=== PATIENT | female | born 1945 | race Caucasian/White ===

== ENCOUNTER 2018-06-17 05:53 | Day surgery (SDC) | payer MEDICARE ==
[~2018-06-17] VITALS: Ht 161.3 cm; Wt 118.3 kg
[~2018-06-17 05:53] MED LIST: ADV250 IH; AMLO5TAB9 PO; ASPIRIN PO; LEVO100T12 PO; LEVO100T6 PO; MULT-248 PO; MULTIVITAMIN PO; OSTEOBIFLEX PO; SIMV40TA59 PO; VENL150C2 PO; VENL225T3 PO; VITAMIN B12 PO
[2018-06-17] MEDS ORDERED: SODIUM CHLORIDE 0.9% 1000ML 1,000 ML IV ONE (05:59)
[2018-06-17 06:09] VITALS: BP 161/71
[2018-06-17] MEDS ORDERED: PROPOFOL 1000 MG/100 ML 100 ML IV ONE (06:29)
[2018-06-17] MEDS ORDERED: LIDOCAINE HCL 1% 20 ML VIAL ONE (06:30)
[2018-06-17] MEDS ORDERED: GLYCOPYRROLATE 0.2 MG/ML 5 ML VIAL ONE (06:31)
[2018-06-17 06:32] LABS: INR 1.17 (0.85-1.15); PROTHROMBIN TIME 12.2 SEC (9.6-11.6)
[2018-06-17] MEDS ORDERED: LINA145C PO (06:50)
[2018-06-17] MEDS ORDERED: SIMV20TA6 PO (06:50)
[2018-06-17] MEDS ORDERED: FURO20TA4 PO (06:50)
[2018-06-17] MEDS ORDERED: WHEA1POW2 PO (06:50)
[2018-06-17] MEDS ORDERED: DILT120T PO (06:50)
[2018-06-17] MEDS ORDERED: CALC-1009 PO (06:50)
[2018-06-17] MEDS ORDERED: IRBE300T19 PO (06:50)
[2018-06-17] MEDS ORDERED: ARIP5TAB19 PO (06:50)
[2018-06-17] MEDS ORDERED: DULO60CA63 PO (06:50)
[2018-06-17] MEDS ORDERED: ALBUTEROL (06:50)
[2018-06-17] MEDS ORDERED: WARF-57 PO (06:50)
[2018-06-17 07:17] VITALS: BP 110/52
[2018-06-17 07:22] VITALS: BP 106/55
[2018-06-17 07:27] VITALS: BP 126/51
[2018-06-17 07:30] VITALS: BP 142/58
== END 2018-06-17 07:50 | disposition home or self-care (01) ==
LOC: ENDO 05:53 → DAH 05:53 → ENDO 07:50
PROVIDERS: ATTEND Internal Medicine
DX: K31.7 Polyp of stomach and duodenum (principal); K44.9 Diaphragmatic hernia without obstruction or gangrene; K31.89 Other diseases of stomach and duodenum; F41.9 Anxiety disorder, unspecified; F32.9 Major depressive disorder, single episode, unspecified; I10 Essential (primary) hypertension; E78.00 Pure hypercholesterolemia, unspecified; J45.909 Unspecified asthma, uncomplicated; M81.0 Age-related osteoporosis without current pathological fracture; E05.90 Thyrotoxicosis, unspecified without thyrotoxic crisis or storm; M19.90 Unspecified osteoarthritis, unspecified site; I48.91 Unspecified atrial fibrillation; Z98.890 Other specified postprocedural states; Z79.899 Other long term (current) drug therapy; Z68.42 Body mass index [BMI] 45.0-49.9, adult; Z79.01 Long term (current) use of anticoagulants
CPT/HCPCS: 36415; 43239; 43249; 85610; 88305; 93005; A4606; J2704; J3490; J7030

== ENCOUNTER 2019-03-25 23:08 | Emergency (ER) | payer MEDICARE ==
[~2019-03-25 23:08] MED LIST changes: +ALBUTEROL; -AMLO5TAB9 PO; +ARIP5TAB56 PO; -ASPIRIN PO; +CALC-1009 PO; +DILT120T PO; +DULO60CA64 PO; +FURO20TA4 PO; +IRBE300T19 PO; -LEVO100T6 PO; +LINA145C PO; -MULTIVITAMIN PO; -OSTEOBIFLEX PO; +SIMV-43 PO; -SIMV40TA59 PO; -VENL150C2 PO; -VENL225T3 PO; -VITAMIN B12 PO; +WARF-57 PO; +WHEA1POW2 PO
[2019-03-26] MEDS ORDERED: PREDNISONE 20 MG TABLET ONE (00:20)
[2019-03-26] MEDS ORDERED: ALBUTEROL SULFATE 0.083% 2.5 MG/3 ML INH IH ONE ×2 (01:02→03:07)
[2019-03-26 01:50] LABS: BASOPHILS % (AUTO) 0.6 % (0.0-5.0); EOSINOPHILS % (AUTO) 1.3 % (0.0-8.0); HEMATOCRIT 41.5 % (36-48); LYMPHOCYTES % (AUTO) 23.9 % (21.0-51.0); MEAN CORPUSCULAR HEMOGLOBIN 29.7 pg (27.0-33.0); MEAN CORPUSCULAR VOLUME 89.8 fL (79-99); MONOCYTES % (AUTO) 9.3 % (3.0-13.0); NEUTROPHILS % (AUTO) 64.4 % (40.0-77.0); PLATELET COUNT (AUTO) 215 K/uL (130-400); RED BLOOD CELL COUNT(AUTO) 4.62 MIL/uL (4.00-5.50); RED CELL DISTRIBUTION WIDTH 13.8 % (11.0-15.5); WHITE BLOOD COUNT (AUTO) 12.8 K/uL (4.8-10.8)
[2019-03-26] MEDS ORDERED: LIDOCAINE HCL 2% VISCOUS 15 ML UDCUP ONE (02:00)
[2019-03-26] MEDS ORDERED: MAG HYDROX/AL HYDROX/SIMETH ES 30 ML SUSP UDCUP ONE (02:00)
[2019-03-26 02:02] LABS: PARTIAL THROMBOPLASTIN TIME 56.6 SEC (26.3-35.5)
[2019-03-26 02:03] LABS: CREATININE 0.9 mg/dL (0.5-1.5); POTASSIUM 3.6 mmol/L (3.5-5.1)
[2019-03-26 02:08] LABS: ALBUMIN 3.9 g/dL (3.5-5.0); BILIRUBIN,TOTAL 0.3 mg/dL (0.2-1.0); TOTAL PROTEIN, SERUM 7.3 g/dL (6.0-8.3)
[2019-03-26 02:19] LABS: B-TYPE NATRIURETIC PEPTIDE 50 pg/mL (0-100)
[2019-03-26 02:33] LABS: INR 5.24 (0.85-1.15); PROTHROMBIN TIME 51.6 SEC (9.6-11.6)
[2019-03-26] MEDS ORDERED: PHYTONADIONE 10 MG/1 ML AMP ONE (02:49)
== END 2019-03-26 03:27 | disposition home or self-care (01) ==
LOC: EDH 23:08
DX: J45.41 Moderate persistent asthma with (acute) exacerbation (principal); J20.9 Acute bronchitis, unspecified; R79.1 Abnormal coagulation profile; E78.5 Hyperlipidemia, unspecified; I10 Essential (primary) hypertension; I48.91 Unspecified atrial fibrillation; E03.9 Hypothyroidism, unspecified; K21.9 Gastro-esophageal reflux disease without esophagitis; Z88.6 Allergy status to analgesic agent
CPT/HCPCS: 36415; 71046; 80053; 83880; 84484; 85025; 85610; 85730; 93005; 94640 ×2; 96365; 99285; J3430

== ENCOUNTER → 2022-10-08 | Outpatient (CLI) | payer OTHER ==
[~2022-10-08] MED LIST changes: +IRBE300T18 PO; -IRBE300T19 PO
== END | disposition home or self-care (01) ==
LOC: SHCH 11:23
PROVIDERS: ATTEND Student in an Organized Health Care Education/Training Program
DX: R06.02 Shortness of breath (principal)
CPT/HCPCS: 93306

== ENCOUNTER → 2023-08-30 | Outpatient (CLI) | payer OTHER ==
[~2023-08-30] MED LIST changes: +ARIP5TAB30 PO; -ARIP5TAB56 PO; +IOHEXOL 350 MG/ML 100ML INFUS..BTL IV ONE; -IRBE300T18 PO; +IRBE300T26 PO; +METOPROLOL TARTRATE 1 MG/ML 5ML VIAL IV ONE
== END | disposition home or self-care (01) ==
LOC: RAH 07:45
PROVIDERS: ATTEND Student in an Organized Health Care Education/Training Program
DX: R07.9 Chest pain, unspecified (principal); K76.89 Other specified diseases of liver
CPT/HCPCS: 75574; J3490; Q9967